=== PATIENT | female | born 1965 | race Hispanic/Latino ===

== ENCOUNTER 2024-06-18 18:34 | Emergency (ER) | payer BC, OTHER ==
[~2024-06-18] VITALS: Ht 160 cm; Wt 59.0 kg
[2024-06-18] MEDS: IBUPROFEN 600 MG TABLET PO ONE (19:37)
[2024-06-18 20:21] VITALS: BP 126/80; PULSE 88; RESP 20; O2SAT 100
== END 2024-06-18 20:26 | disposition home or self-care (01) ==
LOC: EDH 18:34
DX: S93.491A Sprain of other ligament of right ankle, initial encounter (principal); S90.31XA Contusion of right foot, initial encounter; S60.222A Contusion of left hand, initial encounter; E05.90 Thyrotoxicosis, unspecified without thyrotoxic crisis or storm; Z88.5 Allergy status to narcotic agent; Z90.49 Acquired absence of other specified parts of digestive tract; W18.39XA Other fall on same level, initial encounter; Y93.89 Activity, other specified; Y92.89 Other specified places as the place of occurrence of the external cause; Y99.8 Other external cause status
CPT/HCPCS: 73130; 73610; 73620